=== PATIENT | male | born 1960 | race Caucasian/White ===

== ENCOUNTER 2018-01-07 17:59 | Emergency (ER) | payer SELFPAY ==
[~2018-01-07] VITALS: Ht 177.8 cm; Wt 95.3 kg
[~2018-01-07 17:59] MED LIST: BENZ200C25 PO; DOXY100C2 PO; PRD20T PO; TRAM-42 PO
--- OUTSIDE RECORDS SUMMARY | 2018-01-07 18:03 | XMS REPORT ---
Author Author JOSE OLSEN Organization [employer] Address Unknown Phone Unavailable Care Team Providers Care Broomcorn Thresher Name Role Phone JOSE OLSEN CP Unavailable Allergies No Known Allergies Problems Problem Type Condition Code Onset Dates Condition Status Assessment Dental caries, unspecified K02.9 Active Assessment Retained dental root K08.3 Active Assessment Dental examination Z01.20 Active Medications Medication Code System Code Instructions Start Date End Date Status Dosage [facility] 2001 [id number] 7.5-325 MG Orally every 6 hrs Sep 13, 2015 1 tablet as needed Clindamycin [facility] 2001 [address]-09 150 MG Orally every 6 hours Sep 13, 2015 Sep 23, 2015 2 capsules Procedures Procedure Coding System Code Date INTRAORL-PERIAPICAL EA ADD FILM CPT-4 D0230 Sep 13, 2015 INTRAORL-PERIAPICAL EA ADD FILM CPT-4 D0230 Sep 13, 2015 LTD ORAL EVALUATION - PROBLEM FOCUS CPT-4 D0140 Sep 13, 2015 SURG REMOVAL ERUPTED TOOTH CPT-4 D7210 Sep 13, 2015 EXTRAC ERUPTED TOOTH/EXPOSED ROOT CPT-4 D7140 Sep 13, 2015 SURG REMOVAL ERUPTED TOOTH CPT-4 D7210 Sep 13, 2015 Vital Signs Date/Time: Sep 13, 2015 Blood Pressure Diastolic 83 mmHg Blood Pressure Systolic 162 mmHg Results No Known Results Summary Purpose [employer] Submission
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
--- OUTSIDE RECORDS SUMMARY | 2018-01-07 18:03 | XMS REPORT ---
Author Author PAULETTE YEN Organization [employer] Address Unknown Phone Unavailable Care Team Providers Care School Administrator Name Role Phone PAULETTE YEN CP Unavailable Allergies No Known Allergies Problems Problem Type Condition Code Onset Dates Condition Status Assessment Encounter for dental examination Z01.20 Active Medications No Known Medications Procedures Procedure Coding System Code Date LTD ORAL EVALUATION - PROBLEM FOCUS CPT-4 D0140 Sep 15, 2015 Results No Known Results Summary Purpose [employer] Submission
[2018-01-07 18:26] LABS: BASOPHILS % (AUTO) 0 % (0-10); EOSINOPHILS # (AUTO) 0.3 10^3/uL (0.0-0.3); EOSINOPHILS % (AUTO) 3 % (0-10); HEMATOCRIT 40 % (40-54); HEMOGLOBIN 13.7 G/DL (13.3-17.7); LYMPHOCYTES # (AUTO) 2.9 X 10^3 (1.0-4.0); LYMPHOCYTES % (AUTO) 26 % (12-44); MEAN CORPUSCULAR HEMOGLOBIN 30 PG (25-34); MEAN CORPUSCULAR HGB CONC 34 G/DL (32-36); MEAN CORPUSCULAR VOLUME 88 FL (80-99); MEAN PLATELET VOLUME 10.9 FL (7.4-10.4); MONOCYTES % (AUTO) 9 % (0-12); NEUTROPHILS % (AUTO) 62 % (42-75); PLATELET COUNT 297 10^3/uL (130-400); RED BLOOD COUNT 4.59 10^6/uL (4.35-5.85); RED CELL DISTRIBUTION WIDTH 12.6 % (10.0-14.5); WHITE BLOOD COUNT 11.2 10^3/uL (4.3-11.0)
[2018-01-07 18:40] LABS: INR 0.9 (0.8-1.4); PROTHROMBIN TIME PATIENT 12.5 SEC (12.2-14.7)
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
[2018-01-07] MEDS ORDERED: IOHEXOL 350 MG/ML 150 ML (OMNIPAQUE 350) VIAL IV ONE (18:45)
[2018-01-07] MEDS ORDERED: NS 100 ML (IVPB) BAG IV ONE (18:45)
[2018-01-07 18:49] LABS: ALANINE AMINOTRANSFERASE 20 U/L (0-55); ALBUMIN 3.8 GM/DL (3.2-4.5); ALKALINE PHOSPHATASE 95 U/L (40-136); BILIRUBIN,TOTAL 0.2 MG/DL (0.1-1.0); BUN/CREATININE RATIO 21; CALCIUM 9.5 MG/DL (8.5-10.1); CARBON DIOXIDE 25 MMOL/L (21-32); CHLORIDE 107 MMOL/L (98-107); CREATINE KINASE 119 U/L (30-200); CREATININE SERUM 1.02 MG/DL (0.60-1.30); GFR ESTIMATED > 60; GLUCOSE 127 MG/DL (70-105); MAGNESIUM 2.1 MG/DL (1.8-2.4); POTASSIUM 4.1 MMOL/L (3.6-5.0); SODIUM 140 MMOL/L (135-145); TOTAL PROTEIN 7.2 GM/DL (6.4-8.2)
[2018-01-07 19:09] LABS: CREATINE KINASE MB 2.3 NG/ML (<6.6); TSH (THYROID ANALYZER) 3.72 UIU/ML (0.35-4.94)
[2018-01-07 19:23] LABS: BILIRUBIN,URINE NEGATIVE (NEGATIVE); CLARITY,URINE CLEAR; COLOR,URINE YELLOW; GLUCOSE, URINE (UA) NEGATIVE (NEGATIVE); KETONES,URINE NEGATIVE (NEGATIVE); LEUKOCYTE ESTERASE ,URINE NEGATIVE (NEGATIVE); NITRITE,URINE NEGATIVE (NEGATIVE); PH,URINE 6 (5-9); PROTEIN,URINE NEGATIVE (NEGATIVE); UROBILINOGEN,URINE NORMAL (NORMAL)
--- NOTE | 2018-01-07 19:29 | Diagnostic Imaging Report ---
PROCEDURE: CT angiography of the chest with contrast. TECHNIQUE: Multiple contiguous axial images were obtained through the chest after uneventful bolus administration of intravenous contrast. Reconstructed CTA MIP acquisitions were also performed. INDICATION: Right shoulder and chest pain COMPARISON: None FINDINGS: The pulmonary arteries are diagnostic to the segmental level. No pulmonary embolus is seen. The aorta appears normal without evidence of aneurysm or dissection. The heart is normal in size. There is no pericardial effusion. No mediastinal adenopathy is seen. No focal consolidation is seen. No masses are identified. There is no pleural effusion or pneumothorax. No central endobronchial lesions are seen. Degenerative changes are seen in the right and left shoulders, as well as in the thoracic spine. No acute osseous abnormality is seen. Imaged portions of the upper abdomen demonstrate no acute abnormalities. IMPRESSION: 1. No pulmonary embolus. No acute pulmonary abnormality seen. Dictated by: Dictated on workstation # [id number]
--- NOTE | 2018-01-07 19:29 | Diagnostic Imaging Report ---
EXAMINATION: PA and lateral chest. INDICATION: Chest pain. FINDINGS: Lungs demonstrate no focal alveolar consolidation. There is no effusion. There is no pneumothorax. Heart size and mediastinal contours appear appropriate without evidence of failure. No acute osseous abnormality is demonstrated. IMPRESSION: 1. No radiographic evidence of an acute cardiopulmonary process. Dictated by: Dictated on workstation # [id number]
[2018-01-07 19:39] LABS: BACTERIA,URINE NEGATIVE /HPF; WBC,URINE RARE /HPF
[2018-01-07 21:00] VITALS: BP 148/83
--- NOTE | 2018-01-07 21:12 | Diagnostic Imaging Report ---
DATE: 01/07/2018 8:59 PM REASON FOR EXAM: Right arm swelling. COMPARISON: None FINDINGS: Doppler, ring-scale and color-flow imaging of the right upper extremity veins. The deep veins of the right upper extremity (subclavian, jugular, axillary, and brachial veins) show no evidence of intraluminal thrombosis. The superficial veins (basilic and cephalic veins) are patent. These vessels show normal compressibility, color flow, and Doppler augmentation. IMPRESSION: Negative venous Doppler of the right upper extremity. Dictated by: Dictated on workstation # [id number]
--- NOTE | 2018-01-07 21:13 | Diagnostic Imaging Report ---
PROCEDURE: US right lower extremity venous. TECHNIQUE: Multiple real-time grayscale images were obtained over the right lower extremity in various projections. Additional duplex Doppler and color Doppler images were also obtained. INDICATION: Right lower extremity swelling COMPARISON: None FINDINGS: The common femoral vein, femoral vein, profunda femoris, and popliteal veins are normal in appearance. The vessels show normal compressibility, color flow and doppler augmentation. The visualized deep calf veins demonstrate no distinct intraluminal thrombus. IMPRESSION: 1. No evidence of deep venous thrombosis. Negative venous Doppler of the right lower extremity veins. Dictated by: Dictated on workstation # [id number]
== END 2018-01-07 21:00 | disposition home or self-care (01) ==
LOC: EDUNIT# 17:59 → ER 18:00
DX: R03.0 Elevated blood-pressure reading, without diagnosis of hypertension (principal); Z79.52 Long term (current) use of systemic steroids
CPT/HCPCS: 36415; 71046; 71275; 80053; 81000; 82550; 82553; 83735; 83880; 84443; 84484; 85025; 85610; 85730; 93005; 93041

== ENCOUNTER → 2021-06-23 | Outpatient (CLI) | payer SELFPAY ==
--- NOTE | 2021-06-23 11:52 | Diagnostic Imaging Report ---
Clinical Indication: Patient with low back pain for years of wear and tear. Patient with chronic pain. Exam: MRI of the lumbar spine performed without IV contrast. Sagittal T2, sagittal T1, sagittal T2 fat-sat, and axial T2. Comparison: None. Findings: There is no acute lumbar spine fracture. The visualized portions of the distal spinal cord, conus medullaris, and cauda equina have normal anatomic appearance. The conus medullaris tip is seen at the upper L1 vertebral body level. No paraspinal soft tissue abnormality is seen. Small parapelvic cysts are seen involving both kidneys. There is a subcentimeter cyst involving the cortical aspect of the posterior right kidney. There are degenerative spurs involving the lumbar spine and multilevel lumbar spine facet arthropathy. L1-L2: There is a diffuse disk bulge. There is mild central canal stenosis, mild right neural foramen narrowing and no significant left neural foramen narrowing. There is mild loss of disk space height. L2-L3: There is diffuse disk bulge with hypertrophic lateral disk spurs bilaterally. There is mild loss of disk space height. There is moderate bilateral facet arthropathy and ligamentum flavum buckling. There is moderate central canal stenosis. There is moderate to severe bilateral neural foraminal narrowing. L3-L4: There is mild diffuse disk bulge with mild loss of disk space height and moderate facet arthropathy. There is mild to moderate central canal stenosis and mild bilateral neural foramen narrowing. L4-L5: There is subtle grade 1 anterolisthesis of L4 on L5. There is mild diffuse disk bulge with severe bilateral facet arthropathy/hypertrophy. There is no significant central canal stenosis. There is severe bilateral neural foramen narrowing. L5-S1: There is subtle grade 1 retrolisthesis of L5 on S1. There is a diffuse disk bulge with moderate loss of disk space height. There is mild bilateral facet arthropathy. There is no significant central canal narrowing. There is mild to moderate left neural foramen narrowing and no significant right neural foramen narrowing. IMPRESSION: 1: There is multilevel lumbar spine degenerative disk disease which is described above. 2: There is subtle grade 1 anterolisthesis of L4-L5 and grade 1 retrolisthesis of L5 on S1. Dictated by: Dictated on workstation # [id number]
== END ==
LOC: RAD 10:15
PROVIDERS: ATTEND Physician Assistant
DX: M43.17 Spondylolisthesis, lumbosacral region (principal); M51.37 Other intervertebral disc degeneration, lumbosacral region; M51.27 Other intervertebral disc displacement, lumbosacral region; M47.817 Spondylosis without myelopathy or radiculopathy, lumbosacral region; M48.07 Spinal stenosis, lumbosacral region; N28.1 Cyst of kidney, acquired
CPT/HCPCS: 72148

== ENCOUNTER → 2023-07-12 | Outpatient (CLI) | payer OTHER ==
--- NOTE | 2023-07-12 16:48 | Diagnostic Imaging Report ---
INDICATION: Low back pain. TIME OF EXAM: 10:20 AM. FINDINGS: Three views of the lumbar spine demonstrate normal curvature and alignment. Vertebral heights are well-maintained. No acute compression fracture is detected. Multilevel degenerative disc disease is noted with variable disc space narrowing and marginal spurring. There is lower lumbar facet arthropathy. There is some atherosclerotic calcifications in the abdominal aorta. IMPRESSION: Lumbar spondylosis. No acute bony abnormality is detected. Dictated by: Dictated on workstation # [id number]
== END ==
LOC: RAD 10:04
PROVIDERS: ATTEND Family Medicine
DX: Z02.71 Encounter for disability determination (principal); M47.816 Spondylosis without myelopathy or radiculopathy, lumbar region
CPT/HCPCS: 72100